=== PATIENT | male | born 2000 | race Two or more races ===

== ENCOUNTER 2025-06-15 23:49 | Emergency (ER) | payer OTHER ==
[2025-06-16 00:03] VITALS: BP 125/76; PULSE 79; RESP 18; TEMP 98.1; BMI 24.3
[2025-06-16] MEDS: ACETAMINOPHEN 325 MG TABLET (FP) PO ONE (01:04)
[2025-06-16] MEDS ORDERED: diphenhydrAMINE HCL 25 MG CAPSULE (FP) PO ONE (01:22)
[2025-06-16] MEDS: diphenhydrAMINE HCL 25 MG CAPSULE (FP) PO ONE (01:28)
== END 2025-06-16 01:47 | disposition home or self-care (01) ==
LOC: JER 23:49
DX: B30.9 Viral conjunctivitis, unspecified (principal); L29.9 Pruritus, unspecified; H53.142 Visual discomfort, left eye
CPT/HCPCS: 99283-25